=== PATIENT | male | born 1935 | race Caucasian/White ===

== ENCOUNTER 2021-01-03 10:52 | Observation (INO) ==
[2021-01-03] MEDS ORDERED: ceFAZolin 1,000 MG VIAL IRRIG ONE (11:00)
[2021-01-03] MEDS ORDERED: diphenhydrAMINE CAP 50 MG CAPSULE PO ONE (11:00)
[2021-01-03] MEDS ORDERED: DIAZEPAM 5 MG TABLET PO ONE (11:00)
[2021-01-03 11:45] LABS: Basophils % 0.5 % (0.0-0.8); Eosinophils # 0.1 10*3/uL (0.0-0.87); Eosinophils % 1.6 % (0.00-10.9); Hematocrit 41.9 VOL% (42.0-52.0); Hemoglobin 14.1 GM/DL (14.0-18.0); Immature Granulocytes % 0.8 %; Immature Granulocytes Absolute 0.06 #; Lymphocytes # 1.3 10*3/uL (1.4-4.0); Lymphocytes % 15.9 % (21.2-54.2); Mean Corpuscular HGB Conc 33.7 GM/DL (32-36); Mean Corpuscular Volume 93.5 FL (87-102); Mean Platelet Volume 10.8 FL (9.6-12.0); Monocytes % 10.9 % (1.7-12.7); Neutrophils % 70.3 % (38.7-73.9); Platelet Count 142 T/CUMM (130-400); Red Blood Count 4.48 MC/CUMM (3.8-5.5)
[2021-01-03] MEDS ORDERED: diphenhydrAMINE CAP 50 MG CAPSULE ONE (11:51)
[2021-01-03] MEDS ORDERED: DIAZEPAM 5 MG TABLET ONE (11:51)
[2021-01-03] MEDS ORDERED: HEPARIN/NACL 0.9% 2 UNITS/ML 0 UNIT/0 ML BAG IV ONE (11:55)
[2021-01-03] MEDS ORDERED: LIDOCAINE 1% 20 ML VIAL ONE ×2 (11:55→12:34)
[2021-01-03] MEDS: SODIUM CHLORIDE 0.9% 1,000 ML IV SCH (11:58)
[2021-01-03 12:04] LABS: Calcium 9.2 MG/DL (8.5-10.1); Osmolality,Calculated 288.5 MOS/KG (273-304); Potassium 3.9 MMOL/L (3.5-5.1)
[2021-01-03] MEDS ORDERED: ceFAZolin 1,000 MG VIAL ONE ×3 (12:22→13:49)
[2021-01-03] MEDS ORDERED: fentaNYL 100 MCG/2 ML VIAL ONE (12:30)
[2021-01-03] MEDS ORDERED: MIDAZOLAM 2 MG/2 ML VIAL ONE ×2 (12:30→13:25)
[2021-01-03] MEDS ORDERED: TISSUE ADHESIVE 1 EACH APPLICATOR TOP ONE (13:06)
[2021-01-03] MEDS ORDERED: hydrALAZINE 20 MG/1 ML VIAL ONE (13:55)
[2021-01-03] MEDS ORDERED: ACETAMINOPHEN 325 MG TABLET PO PRN (14:26)
[2021-01-03] MEDS ORDERED: hydrALAZINE 20 MG/1 ML VIAL IV PRN (14:29)
[2021-01-03] MEDS ORDERED: DEXTROSE 50% 25 GM/50 ML VIAL IV PRN (14:30)
[2021-01-03] MEDS ORDERED: GLUCAGON 1 MG VIAL IM PRN (14:30)
[2021-01-03] MEDS: INSULIN REGULAR 100 UNIT/ML SUBCUT SCH (16:43)
[2021-01-03] MEDS: METOPROLOL SUCCINATE XL 25 MG TABLET PO SCH (17:02)
[2021-01-03] MEDS: ATORVASTATIN 40 MG TABLET PO SCH (21:43)
[2021-01-04 05:52] LABS: Basophils % 0.5 % (0.0-0.8); Eosinophils # 0.2 10*3/uL (0.0-0.87); Hematocrit 39.1 VOL% (42.0-52.0); Hemoglobin 13.1 GM/DL (14.0-18.0); Immature Granulocytes % 0.7 %; Immature Granulocytes Absolute 0.06 #; Lymphocytes # 1.2 10*3/uL (1.4-4.0); Lymphocytes % 14.1 % (21.2-54.2); Mean Corpuscular HGB Conc 33.5 GM/DL (32-36); Mean Corpuscular Volume 92.9 FL (87-102); Mean Platelet Volume 11.4 FL (9.6-12.0); Monocytes % 11.2 % (1.7-12.7); Neutrophils % 71.5 % (38.7-73.9); Platelet Count 127 T/CUMM (130-400); Red Blood Count 4.21 MC/CUMM (3.8-5.5); Red Cell Distribution Width 14.2 % (9.3-17.3); White Blood Count 8.4 T/CUMM (4-12)
[2021-01-04 06:17] LABS: Calcium 8.6 MG/DL (8.5-10.1); Osmolality,Calculated 285.5 MOS/KG (273-304); Potassium 4.3 MMOL/L (3.5-5.1)
[2021-01-04 06:45] LABS: Platelet Estimate Adequate
[2021-01-04 06:46] LABS: Anisocytosis 1+; Burr Cells Few; Macrocytosis Slight; Spherocytes Few
[2021-01-04] MEDS: METOPROLOL SUCCINATE XL 25 MG TABLET PO SCH (09:34)
[2021-01-04] MEDS: glipiZIDE 10 MG TABLET PO SCH (09:34)
[2021-01-04] MEDS: INSULIN REGULAR 100 UNIT/ML SUBCUT SCH ×2 (09:40→17:25)
[2021-01-04] MEDS: SODIUM CHLORIDE 0.9% 1,000 ML IV SCH (12:43)
[2021-01-04] MEDS: ATORVASTATIN 40 MG TABLET PO SCH (20:24)
[2021-01-05 05:47] LABS: Basophils % 0.3 % (0.0-0.8); Eosinophils # 0.3 10*3/uL (0.0-0.87); Eosinophils % 3.1 % (0.00-10.9); Hematocrit 42.5 VOL% (42.0-52.0); Immature Granulocytes % 0.6 %; Immature Granulocytes Absolute 0.05 #; Lymphocytes # 1.4 10*3/uL (1.4-4.0); Lymphocytes % 16.2 % (21.2-54.2); Mean Corpuscular HGB Conc 32.9 GM/DL (32-36); Mean Corpuscular Volume 94.2 FL (87-102); Monocytes % 12.9 % (1.7-12.7); Neutrophils % 66.9 % (38.7-73.9); Platelet Count 121 T/CUMM (130-400); Red Blood Count 4.51 MC/CUMM (3.8-5.5); White Blood Count 8.6 T/CUMM (4-12)
[2021-01-05 06:15] LABS: Calcium 9.2 MG/DL (8.5-10.1); Osmolality,Calculated 283.5 MOS/KG (273-304); Potassium 4.3 MMOL/L (3.5-5.1)
[2021-01-05 06:30] LABS: Anisocytosis 1+; Platelet Estimate Adequate
[2021-01-05 06:31] LABS: Burr Cells Few; Macrocytosis Slight; Ovalocytes Few
[2021-01-05 08:43] VITALS: BP 176/79
[2021-01-05] MEDS: glipiZIDE 10 MG TABLET PO SCH (08:44)
[2021-01-05] MEDS: METOPROLOL SUCCINATE XL 25 MG TABLET PO SCH (08:46)
[2021-01-05] MEDS: INSULIN REGULAR 100 UNIT/ML SUBCUT SCH (09:38)
== END 2021-01-05 12:00 | disposition home or self-care (01) ==
LOC: N.CL 10:52 → N.TELEN 10:52 → N.CL 11:00 → N.TELEN 14:41
PROVIDERS: ADMIT Internal Medicine Cardiovascular Disease; ATTEND Internal Medicine Cardiovascular Disease